=== PATIENT | female | born 1980 ===

== ENCOUNTER 2025-08-19 23:14 | Emergency (ER) | payer OTHER, SELFPAY ==
--- NOTE | ~2025-08-19 | XR_ITS ---
CLINICAL HISTORY: cough, left sided pain 2 view chest x-ray Comparison: None provided Findings: The lungs are clear. Heart size is normal. No acute fracture. IMPRESSION: 1. No acute findings. This document has been electronically signed by: Mayank Novoa MD on 08/20/2025 01:21:40
--- NOTE | 2025-08-19 23:18 | ECG_ITS ---
Test Reason : CP Blood Pressure : */* mmHG Vent. Rate : 74 BPM Atrial Rate : 74 BPM P-R Int : 134 ms QRS Dur : 70 ms QT Int : 382 ms P-R-T Axes : 65 39 38 degrees QTcB Int : 424 ms Normal sinus rhythm Normal ECG No previous ECGs available Referred By: Generic ED Physician Electronically Signed By: ELSY DUNN MD
[2025-08-19 23:29] VITALS: BP 131/57; PULSE 76; RESP 20; TEMP 36.6; O2SAT 100; BMI 34.2
[2025-08-20 00:23] LABS: Hematocrit 46.0 % (37.0-47.0); Hemoglobin 15.4 g/dl (12.0-16.0); Imm Gran Abs Auto 0.06 X10*3/uL (0.00-0.03); Imm Gran Pct Auto 0.4 % (0.0-0.4); Lymphocytes Absolute Auto 3.8 X10*3/uL (1.2-4.9); MANUAL DIFF FLAG NO; Mean Corpuscular HGB Conc 33.5 g/dl (31.0-35.0); Mean Corpuscular Hemoglobin 30.5 pg (27.0-33.0); Mean Corpuscular Volume 91.1 fL (80.0-98.0); NRBC Abs Auto 0.000 X10*3/uL (0.0-0.012); NRBC Pct Auto 0.0 /100WBC (0.0-0.2); Platelet Count 332 X10*3/uL (160-400); Red Blood Count 5.05 X10*6/uL (4.20-5.50); White Blood Count 14.7 X10*3/uL (4.8-10.8)
[2025-08-20 00:37] LABS: COVID-19 Test Negative (Negative); IDNOW Serial# 55D5AD1C; IDNOW Serial# 58CA691E; Influenza B2 Negative (Negative)
[2025-08-20 00:43] LABS: Anion Gap 14 (12-20); Blood Urea Nitrogen 18 mg/dL (9-16); Calcium 9.4 mg/dL (8.4-10.2); Carbon Dioxide 23 mmol/L (22-29); Chloride 108 mmol/L (96-108); Creatinine Clr Calc Pharmacy 85.6; Estimated Glomerular Filt Rate > 60; Potassium 4.1 mmol/L (3.3-5.1); Sodium 141 mmol/L (135-145)
[2025-08-20 00:44] LABS: NT Pro B Type Natriuretic Pept 75.0 pg/mL (<300); Troponin-I High Sensitivity < 2.7 ng/L (<3.5-17.0)
[2025-08-20 00:51] LABS: D Dimer High Sensitivity < 150 NG/ML
--- NOTE | 2025-08-20 01:24 | ED_ITS ---
HPI - Chest Pain General Chief Complaint: Chest Pain Stated Complaint: CP + difficulty breathing Time Seen by Provider: 08/19/25 23:44 Source: patient, family, RN notes reviewed and old records reviewed Mode of arrival: ambulatory Limitations: no limitations History of Present Illness ED Provider: Leyla CORONEL narrative: 45-year-old female with a past medical history significant for GERD, diabetes, previous DVT currently on Plavix presenting for evaluation of left-sided chest pain. She reports that she has had a cough for about 2 weeks. Her pain has been constant for the last few days pain The pain is worse with a deep breathing, with palpation, worse with movement. Denies any history of coronary artery disease. Denies any fevers, chills or shortness of breath Related Data Previous Rx's ?Medication ?Instructions ?Recorded codeine 10 mg-guaifenesin 100 mg/5 5 ml PO Q6H PRN cou gh #120 mL 08/20/25 mL oral liquid Allergies Allergy/AdvReac Type Severity Reaction Status Date / Time aspirin Allergy Severe Shortness Verified 08/20/25 00:17 of Breath Iodinated Contrast Media (IV Allergy Intermediate Hives Verified 08/20/25 00:17 Contrast Dye) Review of Systems 2 Constitutional: Constitutional: Denies body ache(s), Denies chills and Denies fever(s) Eyes: Eyes: Denies blurry vision ENT: Denies vertigo and Denies dizziness Cardiovascular: Cardiovascular: Reports chest pain, Denies dyspnea and Denies dyspnea on exertion Respiratory: Respiratory: Reports cough, Reports pain on inspiration, Reports pain with cough, Denies dyspnea and Denies dyspnea on exertion Gastrointestinal: Gastrointestinal: Denies abdominal pain, Denies nausea and Denies vomiting Musculoskeletal: Musculoskeletal: Denies back pain Neurologic: Denies vertigo and Denies dizziness [facility] Social History Social History Advance Directives: No Advance Directives Information Provided: Yes Physical Exam 2 Vital Signs: Vital Signs: Last Vital Signs Temp 97.8 F 08/19/25 23:29 Pulse 76 08/19/25 23:29 Resp 20 08/19/25 23:29 BP 131/57 L 08/19/25 23:29 Pulse Ox 100 08/19/25 23:29 O2 Del Method Room Air 08/19/25 23:29 BMI result Body Mass Index 34.2 Const: General: healthy appearing, comfortable, no acute distress, alert and awake Nutritional Appearance: well nourished Orientation/consciousness: p atient oriented x3 HEENT: Head: Yes normocephalic and Yes atraumatic Eyes: Eyelids: Yes eyelids normal Conjunctivae: conjunctivae normal S clerae: sclerae normal Corneas: corneas normal Pupils: Equal, round and reactive pupils present EOM: EOMs intact bilaterally Neck: Neck: Yes full ROM Chest: Chest palpation & inspection: normal inspection of the chest, no crepitus and tenderness pectoral muscle on the left and sternum; no xiphoid process xxx Resp: Effort & Inspection: normal respiratory effort, able to speak in complete sentences, no audible wheezes and not labored Auscultation: clear to auscultation bilaterally Cardio: Rate: regular rate Rhythm: regular rhythm GI: Inspection: No distended Palpation (GI): Soft to palpation, not firm, nontender, no guarding and not rigid Skin: General skin exam: elasticity normal Neuro: General: patient oriented x3 Cranial nerves: Yes Equal, round and reactive pupils present and Yes Bilaterally intact EOM present Cognition (Neuro): normal cognition Medical Decision Making Medical Decision Making [facility] Narrative: 45-year-old female with a past medical history as above presenting for evaluation of cough and chest pain. Her cough started 2 weeks ago in 2 intermittent pain since then. Her pain has been worse in the last few days. She denies any shortness of breath, vital signs are stable. EKG is nonischemic. normal sinus rhythm with a rate of [address] segment elevations or depressions. Labs are significant for a mild leukocytosis which is likely related to a virus causing her to have a cough for the last few weeks. She could have some degree of costochondritis versus chest wall strain. There was no evidence of pneumonia, troponin negative, BNP negative, D-dimer negative. The patient will be discharged with guaifenesin and codeine for her cough with chest pain. Differential Diagnosis Differential Diagnoses: The differential diagnosis associated with the presentation includes Costochondritis Chest wall pain Pneumonia Bronchitis Pneumothorax PE Admission/Observation Consideration of admission/observation: Escalation of care including admission/observation considered Lab Data [facility] Lab Attestation statement: I reviewed the patient's lab results. mild leukocytosis as described above. No significant anemia. Normal platelet count. No electrolyte abnormalities warranting dimension. Glucose of 175 is consistent with the patient's known history of diabetes. No evidence of DKA 08/20/25 00:12 08/20/25 00:12 Labs: Lab Results 08/20/25 08/20/25 Range/Units 00:12 00:30 WBC 14.7 H (4.8-10.8) X10*3/uL RBC 5.05 (4.20-5.50) X10*6/uL Hgb 15.4 (12.0-16.0) g/dl Hct 46.0 (37.0-47.0) % MCV 91.1 (80.0-98.0) fL MCH 30.5 (27.0-33.0) pg MCHC 33.5 (31.0-35.0) g/dl RDW 13.8 (11.0-16.0) % Plt Count 332 (160-400) X10*3/uL MPV 10.6 (9.4-12.3) fL Immature Gran % (Auto) 0.4 (0.0-0.4) % Neut % (Auto) 68.9 (45-73) % Lymph % (Auto) 25.7 (20-40) % [place] % (Auto) 3.3 (2-11) % Eos % (Auto) 1.2 (0-4) % Baso % (Auto) 0.5 (0-2) % Lymph # (Auto) 3.8 (1.2-4.9) X10*3/uL [place] # (Auto) 0.5 (0.1-1.2) X10*3/uL Eos # (Auto) 0.2 (0.0-0.4) X10*3/uL Baso # (Auto) 0.1 (0.0-0.2) X10*3/uL Abs Immat Gran (auto) 0.06 H (0.00-0.03) X10*3/uL Absolute Neuts (auto) 10.2 H (2.0-8.3) x10*3/uL Absolute Nucleated RBC 0.000 (0.0-0.012) X10*3/uL Nucleated RBC % (auto) 0.0 (0.0-0.2) /100WBC D-Dimer High Sensitivty < 150 NG/ML Sodium 141 (135-145) mmol/L Potassium 4.1 (3.3-5.1) mmol/L Chloride 108 (96-108) mmol/L Carbon Dioxide 23 (22-29) mmol/L Anion Gap 14 (12-20) BUN 18 H (9-16) mg/dL Creatinine 0.82 (0.5-1.4) mg/dL Estim Creat Clear Calc 85.6 Estimated GFR > 60 Random Glucose 175 H (60-115) mg/dL Calcium 9.4 (8.4-10.2) mg/dL Troponin I High Sens < 2.7 (<3.5-17.0) ng/L NT-Pro-B Natriuret Pep 75.0 (<300) pg/mL COVID-19 (JOAN) Negative (Negative) COVID-19 Clin Com See Note Influenza Type A (KENNEY) Negative (Negative) Influenza Type B (KENNEY) Negative (Negative) Influenza A & B Note See Note Independent Interpretation I performed an independent interpretation of an: Plain X-Ray Interpretation: no focal infiltrates, pneumothorax or large pleural effusion Radiology Impression Discussion of test interpretation with radiology: I have reviewed the radiologist's reading. Radiologist Impression: Findings: The lungs are clear. Heart size is normal. No acute fracture. IMPRESSION: 1. No acute findings. This document has been electronically signed by: Mayank Novoa MD on 08/20/2025 01:21:40 Discharge Plan Discharge Clinical Impression: Atypical chest pain Patient Disposition: Home, Self-Care Instructions: Chest Wall Pain (ED) Additional Instructions: Your workup in the ER today was reassuring. This includes your EKG, blood work, chest x-ray. I think your pain is most likely a muscle spasm from coughing so much. You may use guaifenesin with codeine to help with your cough as well as to treat your pain. Follow up with your primary doctor, return for new or worsening symptoms Prescriptions: New codeine-guaifenesin 10-100 mg/5 mL liquid 5 ml PO Q6H PRN (Reason: cough) Qty: 120 0RF Print Language: [place]
[2025-08-20 01:40] VITALS: BP 112/66; PULSE 79; RESP 16; TEMP 36.4; O2SAT 97
[2025-08-20 01:45] VITALS: BP 112/66; PULSE 79; RESP 16; TEMP 36.4; O2SAT 97
== END 2025-08-20 01:45 | disposition home or self-care (01) ==
PROVIDERS: Physician Assistant; Emergency Provider Emergency Medicine; PCP Internal Medicine
DX: R07.89 Other chest pain (principal); E11.9 Type 2 diabetes mellitus without complications; Z86.718 Personal history of other venous thrombosis and embolism; Z79.01 Long term (current) use of anticoagulants; Z79.899 Other long term (current) drug therapy
CPT/HCPCS: 36415; 71046; 80048; 83880; 84484; 85025; 85379; 87502; 87635; 93005; 99283; 99284

== ENCOUNTER → 2025-08-19 23:18 | Outpatient (BNV) | payer OTHER, SELFPAY | PROVIDERS: Emergency Provider Emergency Medicine; PCP Internal Medicine; Visit Provider Internal Medicine Cardiovascular Disease | DX: R07.9 Chest pain, unspecified (principal) | CPT/HCPCS: 93010 ==

== ENCOUNTER → 2025-08-20 00:29 | Outpatient (BNV) | payer OTHER, SELFPAY | PROVIDERS: Emergency Provider Emergency Medicine; PCP Internal Medicine; Visit Provider Radiology Diagnostic Radiology | DX: R05.9 Cough, unspecified (principal); R07.89 Other chest pain | CPT/HCPCS: 71046 ==